=== PATIENT | male | born 1970 ===

== ENCOUNTER 2025-06-05 13:21 | Outpatient (AMB) | payer OTHER, SELFPAY ==
--- NOTE | 2025-06-05 13:00 | A.PHYSOV_ITS ---
Vital Signs 06/05/25 13:29 Height 5 ft 5 in Weight 190 lb BMI 31.6 Intake Visit Reasons: F/U AFTER INJECTIONS 04/18/2025 Intake Note: Patient is a 54 year old male in office today for a follow up after Bilateral L4-5 and L5-S1 facet injection 04/18/25 Matt states that the injection did not toutch the pain on the back heat dose help a little did notice that the hip has been getting stuck in and when the back pain is to bad Allergies No Known Allergies Allergy (Verified 06/05/25 13:28) HPI Comments Details: History of Present Illness The patient is a 54 year old male presenting for evaluation of persistent low back pain. He has a history of nerve pain, for which injections proved effective, but reports he is no longer experiencing sciatica or pain radiating down the leg. Patient underwent left S1 TFESI on 02/14/2025 with 80% of his radicular pain results. Patient has subsequently underwent bilateral L4-5, L5- S1 facet injection for severe back pain on 04/18/2025. Patient denies any major relief. His current pain is localized to his back and is attributed to arthritis. He recently underwent injections for this pain, which did not provide any relief. He currently manages his symptoms with ibuprofen and has previously declined stronger pain medications due to a negative experience. Pain Description - Location: Pain is localized to the low back. - Quality: Associated with muscle tightness and tenderness to touch. - Radiation: The patient denies any pain radiating down the leg. - Exacerbating factors: Pain is worse with leaning back and bending down to pick things up. - Alleviating factors: Currently using ibuprofen and stretching. - Interference with function: The pain can be severe at times and makes certain movements, like bending, difficult. [facility] Surgical History (Updated 06/02/25 @ 15:53 by Soumya Machado MA) History of cholecystectomy Social History (Updated 06/02/25 @ 15:54 by Soumya Machado MA) Alcohol intake: current Alcohol intake frequency: holidays/special occasions only Current occupational status: employed Current occupation: time study statistician Review of Systems Narrative Review of Systems - Musculoskeletal: Reports localized back pain and muscle tightness, which is worse when leaning back and bending down. - Neurological: Denies sciatica or pain radiating down the leg. Physical Exam Exam Exam: Physical Exam Lumbar Spine: Examination of his lumbar spine, there is no visible swelling or deformity. He is tender to lower lumbar facets. He is otherwise nontender. Full range of motion of his lumbar spine. He does have an increase in pain with facet loading. Special Tests: Lhermittes sign was negative Heel Toe walk is normal Left straight leg raise: Negative Right straight leg raise: Negative Special tests Jeet test is negative Ganslen's test is negative SI Joint compression test negative Lizet test negative Piriformis stretch is negative Lower Extremities: Full range of motion bilateral lower extremities. No calf pain or edema. Neuro: Sensation: Intact to lower extremities bilaterally Strength L2 (Psoas): 5/5 on the left and 5/5 on the right. L3 (Quads): 5/5 on the left and 5/5 on the right. L4 (Ant tibialis): 5/5 on the left and 5/5 on the right. L5 (EHL) 5/5 on the left and 5/5 on the right. S1 (Gastroc): 5/5 on the left and 5/5 on the right. DTR L4: (Patellar) Left 2 Right 2 S1: (Achilles) Left 2 Right 2 Babinski Downgoing No pathologic clonus. No involuntary movement. Vital Signs: BMI result Body Mass Index 31.6 Assessment & Plan Assessment & Plan (1) Vertebrogenic low back pain: Code(s): M54.51 - Vertebrogenic low back pain Category: Medical (2) Myalgia: Code(s): M79.10 - Myalgia, unspecified site Category: Medical Plan Pain Management - Affect: The patient notes his pain is sometimes relentless and can be significantly bad. - Analgesia: He currently uses ibuprofen for pain management. - He reports that recent injections for his back arthritis were not helpful. - He declined offers for stronger analgesics, such as Vicodin, Percocet, or tramadol, as well as a muscle relaxer. - Adverse Effects: He reports a prior negative experience with unspecified medications at the hospital. - Activities of Daily Living: Pain makes it difficult to bend down and grab objects. - He has a busy schedule with work and school, which he feels is a barrier to attending physical therapy. - Aberrant Drug Related Behaviors: None noted; the patient declined offers of controlled substances. Plan Patient was informed and verbally consented to the use of an ambient scribe for clinic note documentation during this visit. 1. Chronic Low Back Pain The patient's persistent low back pain is attributed to arthritis and has been unresponsive to recent injections. His previous history of radicular pain has resolved. Physical examination noted significant muscle tightness and tenderness. No further injections are recommended at this time. Options including physical therapy and stronger analgesics (opioids, muscle relaxers) were offered, but the patient declined at this time, citing scheduling constraints and a preference to avoid certain medications. The patient will continue his current regimen of ibuprofen and stretching. He will be scheduled for a consultation with Dr. Berumen, a facs teacher, for a second opinion, who will review his MRI and evaluate for other potential treatment options. Discussion Notes I discussed with the patient that his current back pain is related to arthritis and was not helped by the recent injections, unlike his previous resolved nerve pain. I recommended against any more injections at this time and explained the available alternatives. These options included physical therapy, children's zoo caretaker, and stronger pain medications, which the patient declined. Given the persistence of his symptoms and the lack of response to current treatments, we agreed that a second opinion would be beneficial. I arranged for him to see Dr. Birch, our facs teacher, who will review the patient's MRI and provide a comprehensive re-evaluation. In the interim, I advised him to continue with ibuprofen and stretching and to schedule the follow-up appointment. Patient Instructions - Please go to the motel front desk attendant to schedule an appointment with Dr. Berumen for a second opinion on your back pain. - In the meantime, you may continue taking ibuprofen as you have been for pain. - Continue with your stretching exercises. - We are not recommending any further injections at this time. Medications: New tizanidine 4 mg PO TID PRN 90 caps 3RF muscle spasticity 30 days M54.51 - Vertebrogenic low back pain, M79.10 - Myalgia, unspecified site Coding Level of Care Code Est Pt Level 3 (54744) Diagnoses Vertebrogenic low back pain M54.51 Myalgia M79.10
[2025-06-05 13:29] VITALS: BMI 31.6
--- OUTSIDE RECORDS SUMMARY | 2025-06-05 20:32 | XMS_ITS | Clinical Summary ---
Author Organization [facility] Prior to 11/23/[address] [place] [id number] Care Team Providers [facility] President Name Role Phone Unavailable Primary Care Provider Unavailabl e Social History Tobacco Use Types Packs/Day Years Used Date Smoking Tobacco: Never Assessed Sex and Gender Information Value Date Recorded Sex Assigned at Not on file Gender Identity Not on file Sexual Orientation Not on file Plan of Treatment Not on file
== END 2025-06-05 13:50 | disposition home or self-care (01) ==
LOC: HO.HPHYS 13:21
PROVIDERS: PCP Internal Medicine; Visit Provider Physician Assistant
DX: M54.51 Vertebrogenic low back pain (principal); M79.10 Myalgia, unspecified site
CPT/HCPCS: 99213